=== PATIENT | male | born 1975 | race Caucasian/White ===

== ENCOUNTER 2020-08-12 14:18 | Emergency (ER) | payer MEDICAID ==
[~2020-08-12] VITALS: Ht 180.3 cm; Wt 79.4 kg
[2020-08-12 15:00] LABS: Basophils # (auto) 0 10 ^3/uL (0-0.2); Basophils % (auto) 0.4 % (0.0-2.0); Eosinophils # (auto) 0 10 ^3/uL (0-0.8); Eosinophils % (auto) 0.2 % (0.0-7.0); Hematocrit 43.1 % (41.0-53.0); Hemoglobin 15.2 g/dL (13.5-17.5); Lymphocytes % (auto) 13.2 % (10.0-50.0); Mean Corpuscular Hemoglobin 33.7 pg (28.0-32.0); Mean Corpuscular Hgb Conc. 35.2 g/dL (32.0-36.0); Mean Corpuscular Volume 95.8 fL (80.0-100.0); Monocytes # (auto) 0.8 10 ^3/uL (0-1.3); Neutrophils # (auto) 5.9 10 ^3/uL (1.6-8.6); Neutrophils % (auto) 76.2 % (37.0-80.0); Nucleated Red Blood Cells % 0.1 %; Platelet Count (auto) 323 10^3/uL (140-450); Red Cell Distribution Width 12.9 % (11.8-14.3); White Blood Cell 7.7 10^3/uL (4.4-10.8)
[2020-08-12 15:19] LABS: Potassium 3.6 mmol/L (3.5-5.1)
[2020-08-12 15:20] LABS: BUN/Creatinine Ratio 7.1
[2020-08-12 15:23] LABS: Bilirubin, Total 0.7 mg/dL (0.2-1.0)
[2020-08-12 15:35] LABS: INR 1.04 (0.9-1.15); Partial Thromboplastin Time 24.5 sec (23.0-31.2)
[2020-08-12] MEDS ORDERED: IOHEXOL 300 MG/ML 100ML BOTTLE IJ ONE (15:59)
[2020-08-12 17:00] VITALS: BP 127/70
[2020-08-12] MEDS ORDERED: ONDANSETRON HCL 4 MG/2 ML VIAL IV ONE (17:30)
[2020-08-12] MEDS ORDERED: MORPHINE SULFATE 4 MG/ML SYR/VIAL IV ONE (17:30)
== END 2020-08-12 18:58 | disposition home or self-care (01) ==
LOC: ER 14:18 → EDBD 14:18 → ER 18:36
DX: K40.90 Unilateral inguinal hernia, without obstruction or gangrene, not specified as recurrent (principal); F12.10 Cannabis abuse, uncomplicated
CPT/HCPCS: 36415; 74177; 80053; 85025; 85610; 85730; 96374; 96375; 99285; J2270; J2405; Q9967